=== PATIENT | female | born 1960 | race Caucasian/White ===

== ENCOUNTER 2017-05-17 20:15 | Emergency (ER) | payer OTHER ==
[~2017-05-17] VITALS: Ht 170.2 cm; Wt 71.2 kg
[~2017-05-17 20:15] MED LIST: ACYC400 PO; ALBIPROI; ALBIPROI INH; ALPR.5; ARIP30 PO; ASCO1ER; Antivert25 MG PO; BENTYL10 MG PO; BETA CAROTENE; BUDE32NIS; BUPR150ER; BUPR150ER PO; Benadryl 50 mg50 MG PO; CALPHO600; CEPH500 PO; CETI10 PO; CHRO200; CLON2; CLON2 PO; CYCL10 PO; DIAZ10 PO; DIVIGEL; DOCU100; DULO60 PO; ESTR25VT PV; FISH1000; FLAX; FLUSAL1005 IH; FLUT110OIA; FORM12IH; GABA300; GABA300 PO; GREEN TEA EXTRACT; HALCION; HYDACE5 PO; HYDPAM25; HYDPAM50 PO; IBUP400 PO; LACT10SY PO; LAMO100; LECITHIN; LEVSOD25 PO; LIOT25 PO; LORA.5; LYSINE 500 MG; METO10 PO; MOMENI; MULVITA; Mobic15 MG PO; NAPR220 PO; NAPR500 PO; OMEP20ER; OMEP20ER PO; ORLI120; OXYACE5T PO; OXYB5 PO; OXYC15ER PO; OXYC5; OXYC5 PO; PROG100 PO; QUET100; QUET200; QUET25 PO; QUININE; RISE35; SILSUL1TC TOP; Senna8.6 M1; Symbicort 16010.2 GM IH; TEMA30 PO; TESTTP TOP; TOCO400; TRAM50 PO; UBID100; Vitamin C100 M1 PO; ZAFI20; ZAFI20 PO; ZIPR40; ZOLP12.5 PO; Zanaflex4 M1 PO; [UNRECOGNIZED DRUG - OTHER]; [UNRECOGNIZED DRUG - OTHER]; [UNRECOGNIZED DRUG - OTHER]
[2017-05-17 20:48] LABS: BASOPHILS ABSOLUTE AUTO 0.05 K/mm3 (0.00-0.23); BASOPHILS PERCENT AUTO 1 % (0-2); EOSINOPHILS ABSOLUTE AUTO 0.38 K/mm3 (0.00-0.68); EOSINOPHILS PERCENT AUTO 6 % (0-6); Hematocrit 45.2 % (33.0-51.0); IMMATURE GRAN ABSOLUTE AUTO 0.01 K/mm3 (0.00-0.10); IMMATURE GRAN PERCENT AUTO 0 % (0-1); LYMPHOCYTES ABSOLUTE AUTO 2.47 K/mm3 (0.84-5.20); LYMPHOCYTES PERCENT AUTO 36 % (21-46); MONOCYTES PERCENT AUTO 6 % (4-13); Mean Corpuscular HGB 29.9 pg (26.0-34.0); Mean Corpuscular HGB Conc 33.2 g/dL (31.5-36.5); Mean Corpuscular Volume 90 fL (80-100); Mean Platelet Volume 9.4 fL (9.1-12.4); NEUTROPHILS ABSOLUTE AUTO 3.63 K/mm3 (1.96-9.15); NEUTROPHILS PERCENT AUTO 52 % (41-73); Platelet Count 299 K/mm3 (150-400); RDW Coefficient Variation 13.1 % (11.7-14.2); RDW Standard Deviation 43.1 fL (35.1-46.3); Red Blood Cell Count 5.02 M/mm3 (3.80-5.20); White Blood Cell Count 6.94 K/mm3 (4.00-11.30)
[2017-05-17 21:09] LABS: Alanine Aminotransfer (ALT/SGP 34 U/L (12-78); Albumin, Blood 3.9 g/dL (3.4-5.0); Alk Phos 88 U/L (50-136); Anion Gap 9 mmol/L (6-16); Aspartate Aminotrans (AST/SGOT 23 U/L (12-37); Bilirubin, Total 0.4 mg/dL (0.1-1.0); Blood Urea Nitrogen 12 mg/dL (8-24); Bun/Creatinine Ratio 18.8 (12.0-20.0); CO2, Blood 25 mmol/L (21-32); Calcium, Blood 9.6 mg/dL (8.5-10.1); Chloride, Blood 103 mmol/L (98-108); Creatinine, Blood 0.64 mg/dL (0.40-1.00); Globulin, Blood 3.9 g/dL (2.2-4.0); Glomerular Filtration Rate >60 (60-); Glucose, Blood 169 mg/dL (70-99); Potassium, Blood 3.7 mmol/L (3.5-5.5); Sodium, Blood 137 mmol/L (136-145); Total Protein, Blood 7.8 g/dL (6.4-8.2); Troponin I <0.015 ng/mL (0.000-0.040)
[2017-05-17 21:59] LABS: Source, Urine Clean Catch
[2017-05-17 22:05] LABS: Appearance, Urine Clear (Clear); Bilirubin, Urine Neg (Neg); Blood, Urine Neg (Neg); Color, Urine Yellow (P-Yellow); Glucose Qualitative, Urine Neg (Neg); Ketones, Urine Neg (Neg); Leukocyte Esterase, Urine Neg (Neg); Nitrite, Urine Neg (Neg); Protein, Urine Neg (Neg); Urobilinogen, Urine NORM (Normal)
[2017-05-17] MEDS ORDERED: Motion Sickness25 M1 PO (23:35)
== END 2017-05-17 23:44 | disposition home or self-care (01) ==
LOC: ER 20:15
PROVIDERS: Emergency Medicine
DX: R42 Dizziness and giddiness (principal); Z88.1 Allergy status to other antibiotic agents; Z88.6 Allergy status to analgesic agent; Z88.8 Allergy status to other drugs, medicaments and biological substances; Z79.899 Other long term (current) drug therapy
CPT/HCPCS: 36415; 71046; 80053; 81003; 84484; 85025; 93005; 93010; 99283